=== PATIENT | male | born 1970 | race American Indian/Alaskan Native ===

== ENCOUNTER 2018-12-21 07:54 | Day surgery (SDC) | payer BC ==
[~2018-12-21 07:54] MED LIST: TETRACAINE 0.5% OPHTH SOLN 4ML OD SCH
[2018-12-21] MEDS: MOXIFLOXACIN 0.5% OPHTH SOLN 3ML OD SCH ×3 (10:05→10:15)
[2018-12-21] MEDS: PHENYLEPHRINE 2.5% OPHTH SOLN 2 ML OD SCH ×3 (10:05→10:15)
[2018-12-21] MEDS: TROPICAMIDE 1% OPHTH SOLN 3 ML OD SCH ×3 (10:05→10:15)
--- NOTE | 2018-12-21 10:26 | Anesthesia Day of Surgery ---
Anesthesia Day of Surgery - Day of Surgery Patient Examined: Yes Patient H&P Reviewed: Yes Patient is NPO: Yes Beta Blockers: Yes
--- NOTE | 2018-12-21 10:26 | Anesthesia Consultation ---
Anesthesia Consult and Med Hx Date of service: 12/21/18 - Airway Anesthetic Teeth Evaluation: Good ROM Head & Neck: Adequate Mental/Hyoid Distance: Adequate Mallampati Class: Class II Intubation Access Assessment: Probably Good (large zavala - potentially difficult mask) - Pulmonary Exam CTA: Yes - Cardiac Exam Cardiac Exam: RRR - Pre-Operative Health Status ASA Pre-Surgery Classification: ASA3 Proposed Anesthetic Plan: MAC - Pulmonary Hx Smoking: Yes (former; quit 10 yrs) Hx Respiratory Symptoms: No - Cardiovascular System Hx Hypertension: Yes (took antihypertensives this morning) Hx Heart Attack/AMI: No Hx Percutaneous Transluminal Coronary Angioplasty (PTCA): No - Central Nervous System Hx Neuromuscular Disorder: No (neuropathy) CVA: No Hx Back Pain: Yes (LUMBAR) Hx Psychiatric Problems: No - Gastrointestinal Hx Gastroesophageal Reflux Disease: No - Endocrine Hx Renal Disease: No Hx Liver Disease: No Hx Insulin Dependent Diabetes: Yes Hx Thyroid Disease: No - Hematic Hx Sickle Cell Disease: (TRAIT) - Other Systems Hx Alcohol Use: Yes Hx Obesity: Yes
[2018-12-21] MEDS ORDERED: acetaZOLAMIDE 250 MG TAB PO NR (10:32)
[2018-12-21] MEDS ORDERED: prednisoLONE ACETATE 1% OPHTH SUSP 5 ML OD NR (10:32)
--- NOTE | 2018-12-21 11:17 | Operative Report ---
Operative Report Operative Report: PATIENT'S NAME: DATE OF : DATE OF SURGERY: 12/21/2018 PREOPERATIVE DIAGNOSIS: Cataract right eye POSTOPERATIVE DIAGNOSIS: Same OPERATIVE PROCEDURE: Phacoemulsification with intraocular lens implantation, right eye SURGEON: Chanell Laurent M.D. CARTOONIST SPECIAL EFFECTS SURGEON: Casimiro Lens: [id number] 18.5 D ANESTHESIA: Monitored anesthesia care in combination with topical and intracameral anesthesia because of the established specific risk of reflux, arrhythmias, or anxiety attacks associated with ocular manipulation, as well as the difficulty of the water operator to manage such potentially catastrophic events while simultaneously attempting to complete the surgical procedure and was deemed necessary for the patient's safety to have an Plaster Model And Mold Maker present during the procedure whenever possible. An Plaster Model And Mold Maker was utilized to regulate the intravenous sedation of the patient so the patient was cooperative yet not asleep in order for the patient to successfully maintain fixation of the eye on the operating light of the microscope. COMPLICATIONS: No surgical complications No blood loss. ALLERGIES: No known drug allergies PROGNOSIS: Excellent INDICATIONS FOR SURGERY: The patient is undergoing surgery in the hopes of eliminating or improving these visual difficulties. PROCEDURE: After arriving at the surgery center, the patient was given topical anesthetic and dilating drops, as noted in the record. The patient was then taken into the operating room and given more anesthetic drops. The eyelids, lashes, and lid margins were scrubbed with Betadine solution, and the patient was draped. The Nurse Plaster Model And Mold Maker administered IV sedation and monitored the patient during the procedure. The eye was then fixated with a 0.12, and a stab incision was made in the peripheral clear cornea into the anterior chamber. This was made on my left side. Viscoelastic was next used to fill the anterior chamber. The eye was once again fixated with the 0.12 forceps and a keratome was used make an incision in clear cornea peripherally on my right hand side temporally. The capsule forceps were used to open the central anterior capsule and then make a continuous round capsulotomy. Hydrodissection was carried out utilizing a cannula and balanced salt solution to delineate the cortical material from the capsule and the nucleus from the cortical material. The phaco tip was introduced into the eye and used to remove the anterior cortical material in the area of the capsulotomy. Then the phaco tip was buried into the nucleus, and a chopping instrument was introduced into the eye and used to provide countertraction in the nucleus between this instrument and the phaco tip fracturing the nucleus. This procedure was repeated multiple times, providing multiple small segments of the lens, and then the phaco tip was used to remove each of these segments. An I/A tip was then used to remove the remaining cortex. The anterior chamber was refilled with viscoelastic. An one-piece, acrylic intraocular lens was then placed into an inserting cartridge. The tip of the inserting cartridge was introduced into the keratome incision and into the anterior chamber. The implant was gently advanced through the cartridge and into the eye, where it unfolded, and both haptics were placed in the capsular bag, where it centered nicely and appeared to be well fixated. After placement of the intraocular lens, the I~and~A handpiece was placed back into the eye and used to remove the viscoelastic, including viscoelastic that was behind the optic of the intraocular lens. The anterior chamber was then filled with balanced salt solution, and hydration of the wound was used to cause swelling of the wound and more appropriate watertight closure. When the wound was found to be firm, the patient was asked to comment on how bright the light was. If there was no light perception at all or if the light was substantially dimmer than during the rest of the surgery, the amount of fluid in the eye was decompressed to lower the intraocular pressure until the patient could see the b right light again. This was done to avoid any damage or decreased blood flow to the optic nerve. MEDICATIONS APPLIED AT END OF SURGERY: One drop of Pred Forte and Vigamox The patient was given a shield to wear at night and was instructed not to rub or push on the eye. DISCHARGE SUMMARY: The patient was released in stable condition. The patient and those with the patient were given a written sheet of postoperative instructions and counseling on any abnormal laboratory studies. The patient is to see us tomorrow for follow-up in the office and is to call immediately for any difficulties. Chanell Laurent M.D. Date
--- NOTE | 2018-12-21 11:18 | Short Stay Summary ---
Short Stay Documentation Date of service: 12/21/18 - History H&P: obtained from office - Allergies and Medications Current Medications: Allergies No Known Allergies Allergy (Verified 12/19/18 17:47) Home Medications Medication Instructions Recorded Confirmed Last Taken Type AtorvaSTATin [Lipitor] 40 mg PO QHS 12/19/18 12/19/18 Unknown History Furosemide [Lasix TAB] 40 mg PO BID 12/19/18 12/19/18 Unknown History Gabapentin [Neurontin] 600 mg PO Q8H 12/19/18 12/19/18 Unknown History Insulin Lispro [Humalog 100 12 units SQ AC 12/19/18 12/19/18 Unknown History UNITS/ML Kwikpen] Irbesartan [Avapro] 150 mg PO DAILY 12/19/18 12/19/18 Unknown History Metoprolol Xl [Metoprolol 100 mg PO QDAY 12/19/18 12/19/18 Unknown History SUCCINATE ER TAB] Multivit-Min/Folic/Vit K/Lycop 1 each PO DAILY 12/19/18 12/19/18 Unknown History [[facility] Daily Men[facility] Health Tab] Potassium Chloride [K-Dur] 20 meq PO BID 12/19/18 12/19/18 Unknown History cloNIDine [Catapres] 0.2 mg PO BID 12/19/18 12/19/18 Unknown History glipiZIDE [Glucotrol] 5 mg PO BID 12/19/18 12/19/18 Unknown History metFORMIN [Glucophage] 500 mg PO BID 12/19/18 12/19/18 Unknown History Active Medications Acetazolamide (Diamox) 500 mg PO ONCE NR Stop: 12/21/18 15:00 Moxifloxacin HCl (Vigamox) 1 drops OD Q5MIN CHERI Stop: 12/21/18 14:00 Phenylephrine HCl (Ak-Dilate) 1 drops OD Q5MIN CHERI Stop: 12/21/18 14:00 Prednisolone Acetate (Pred Forte 1%) 1 drops OD ONCE NR Stop: 12/21/18 15:00 Tetracaine HCl (Tetracaine 0.5%) 1 drops OD Q5M CHERI Stop: 12/21/18 14:00 Tropicamide (Mydriacyl) 1 drops OD Q5MIN CHERI Stop: 12/21/18 14:00 - Brief post op/procedure progress note Date of procedure: 12/21/18 Pre-op diagnosis: right cataract Post-op diagnosis: same Procedure: Phacoemulsification with intraocular lens insertion right eye Anesthesia: MAC, local Surgeon: GIOVANNY MURILLO Estimated blood loss: none Pathology: none Condition: stable - Disposition Condition at discharge: Good Disposition: DC-01 TO HOME OR SELFCARE - Discharge Diagnoses (1) Cortical age-related cataract, right eye Status: Resolved Short Stay Discharge Plan Follow up with: XENA HERNÁNDEZ MD [Primary Care Provider] - 7 Days
[2018-12-21] MEDS ORDERED: fentaNYL 100 MCG/2 ML INJ ONE (11:40)
[2018-12-21] MEDS ORDERED: MIDAZOLAM 2 MG/2 ML INJ ONE (11:40)
[2018-12-21 12:07] VITALS: BP 110/82
--- NOTE | 2018-12-21 12:11 | Post Anesthesia Evaluation ---
- Post Anesthesia Evaluation Patient Participated: Yes Airway Patent: Yes Stable Respiratory Function: Yes Nausea/Vomiting: No Temp > 96.8F: Yes Pain Manageable: Yes Adequeate Hydration: Yes Anesthesia Complications: No
== END 2018-12-21 12:05 | disposition home or self-care (01) ==
LOC: OR 07:54
DX: E11.36 Type 2 diabetes mellitus with diabetic cataract (principal); H25.011 Cortical age-related cataract, right eye; G62.9 Polyneuropathy, unspecified; E78.00 Pure hypercholesterolemia, unspecified; I10 Essential (primary) hypertension; E66.9 Obesity, unspecified; M19.90 Unspecified osteoarthritis, unspecified site; E11.42 Type 2 diabetes mellitus with diabetic polyneuropathy; Z72.89 Other problems related to lifestyle; Z87.891 Personal history of nicotine dependence; Z79.84 Long term (current) use of oral hypoglycemic drugs; Z79.4 Long term (current) use of insulin; Z79.899 Other long term (current) drug therapy; Z68.33 Body mass index [BMI] 33.0-33.9, adult; Z80.1 Family history of malignant neoplasm of trachea, bronchus and lung; Z80.3 Family history of malignant neoplasm of breast
CPT/HCPCS: 66984; 82962; J2250; J3010; V2632

== ENCOUNTER 2018-12-29 07:40 | Day surgery (SDC) | payer BC ==
[~2018-12-29 07:40] MED LIST changes: -TETRACAINE 0.5% OPHTH SOLN 4ML OD SCH; +TETRACAINE 0.5% OPHTH SOLN 4ML OS SCH
[2018-12-29] MEDS ORDERED: acetaZOLAMIDE 250 MG TAB PO NR (08:08)
--- NOTE | 2018-12-29 08:10 | Anesthesia Consultation ---
Anesthesia Consult and Med Hx Date of service: 12/29/18 - Airway Anesthetic Teeth Evaluation: Good ROM Head & Neck: Adequate Mental/Hyoid Distance: Adequate Mallampati Class: Class II Intubation Access Assessment: Good - Pulmonary Exam CTA: Yes - Cardiac Exam Cardiac Exam: RRR - Pre-Operative Health Status ASA Pre-Surgery Classification: ASA3 Proposed Anesthetic Plan: MAC - Pulmonary Hx Smoking: Yes (QUIT 10YRS AGO) Hx Respiratory Symptoms: No Hx Sleep Apnea: (HIGH RISK) - Cardiovascular System Hx Hypertension: Yes (2012) Hx Heart Attack/AMI: No Hx Percutaneous Transluminal Coronary Angioplasty (PTCA): No - Central Nervous System Hx Neuromuscular Disorder: No (neuropathy) CVA: No Hx Back Pain: Yes (LUMBAR) Hx Psychiatric Problems: No - Gastrointestinal Hx Gastroesophageal Reflux Disease: No - Endocrine Hx Renal Disease: No Hx Liver Disease: No Hx Insulin Dependent Diabetes: Yes Hx Thyroid Disease: No - Hematic Hx Sickle Cell Disease: (TRAIT) - Other Systems Hx Alcohol Use: Yes Hx Substance Use: No Hx Cancer: No Hx Obesity: Yes
--- NOTE | 2018-12-29 08:11 | Anesthesia Day of Surgery ---
Anesthesia Day of Surgery - Day of Surgery Patient Examined: Yes Patient H&P Reviewed: Yes Patient is NPO: Yes
[2018-12-29] MEDS: PHENYLEPHRINE 2.5% OPHTH SOLN 2 ML OS SCH ×3 (08:30→08:40)
[2018-12-29] MEDS: TROPICAMIDE 1% OPHTH SOLN 3 ML OS SCH ×3 (08:30→08:40)
[2018-12-29] MEDS: MOXIFLOXACIN 0.5% OPHTH SOLN 3ML OS SCH ×3 (08:30→08:40)
[2018-12-29] MEDS ORDERED: prednisoLONE ACETATE 1% OPHTH SUSP 5 ML OS NR (09:00)
[2018-12-29] MEDS ORDERED: INSULIN LISPRO 100 UNIT/ML SUB-Q ONE (09:15)
[2018-12-29] MEDS ORDERED: fentaNYL 100 MCG/2 ML INJ ONE (09:31)
[2018-12-29] MEDS ORDERED: MIDAZOLAM 2 MG/2 ML INJ ONE (09:31)
--- NOTE | 2018-12-29 10:09 | Operative Report ---
Operative Report Operative Report: PATIENT'S NAME: DATE OF : DATE OF SURGERY: 12/29/2018 PREOPERATIVE DIAGNOSIS: Cataract left eye POSTOPERATIVE DIAGNOSIS: Same OPERATIVE PROCEDURE: Phacoemulsification with intraocular lens implantation, left eye SURGEON: Chanell Laurent M.D. PUBLIC RELATIONS SURGEON: Casimiro Lens: [id number] 17.0 D ANESTHESIA: Monitored anesthesia care in combination with topical and intracameral anesthesia because of the established specific risk of reflux, arrhythmias, or anxiety attacks associated with ocular manipulation, as well as the difficulty of the prestressed concrete laborer to manage such potentially catastrophic events while simultaneously attempting to complete the surgical procedure and was deemed necessary for the patient's safety to have an Hand Alterations Tailor present during the procedure whenever possible. An Hand Alterations Tailor was utilized to regulate the intravenous sedation of the patient so the patient was cooperative yet not asleep in order for the patient to successfully maintain fixation of the eye on the operating light of the microscope. COMPLICATIONS: No surgical complications No blood loss. ALLERGIES: No known drug allergies PROGNOSIS: Excellent INDICATIONS FOR SURGERY: The patient is undergoing surgery in the hopes of eliminating or improving these visual difficulties. PROCEDURE: After arriving at the surgery center, the patient was given topical anesthetic and dilating drops, as noted in the record. The patient was then taken into the operating room and given more anesthetic drops. The eyelids, lashes, and lid margins were scrubbed with Betadine solution, and the patient was draped. The Nurse Hand Alterations Tailor administered IV sedation and monitored the patient during the procedure. The eye was then fixated with a 0.12, and a stab incision was made in the peripheral clear cornea into the anterior chamber. This was made on my left side. Viscoelastic was next used to fill the anterior chamber. The eye was once again fixated with the 0.12 forceps and a keratome was used make an incision in clear cornea peripherally on my right hand side temporally. The capsule forceps were used to open the central anterior capsule and then make a continuous round capsulotomy. Hydrodissection was carried out utilizing a cannula and balanced salt solution to delineate the cortical material from the capsule and the nucleus from the cortical material. The phaco tip was introduced into the eye and used to remove the anterior cortical material in the area of the capsulotomy. Then the phaco tip was buried into the nucleus, and a chopping instrument was introduced into the eye and used to provide countertraction in the nucleus between this instrument and the phaco tip fracturing the nucleus. This procedure was repeated multiple times, providing multiple small segments of the lens, and then the phaco tip was used to remove each of these segments. An I/A tip was then used to remove the remaining cortex. The anterior chamber was refilled with viscoelastic. An one-piece, acrylic intraocular lens was then placed into an inserting cartridge. The tip of the inserting cartridge was introduced into the keratome incision and into the anterior chamber. The implant was gently advanced through the cartridge and into the eye, where it unfolded, and both haptics were placed in the capsular bag, where it centered nicely and appeared to be well fixated. After placement of the intraocular lens, the I~and~A handpiece was placed back into the eye and used to remove the viscoelastic, including viscoelastic that was behind the optic of the intraocular lens. The anterior chamber was then filled with balanced salt solution, and hydration of the wound was used to cause swelling of the wound and more appropriate watertight closure. When the wound was found to be firm, the patient was asked to comment on how bright the light was. If there was no light perception at all or if the light was substantially dimmer than during the rest of the surgery, the amount of fluid in the eye was decompressed to lower the intraocular pressure until the patient could see the bright light again. This was done to avoid any damage or decreased blood flow to the optic nerve. MEDICATIONS APPLIED AT END OF SURGERY: One drop of Pred Forte and Vigamox The patient was given a shield to wear at night and was instructed not to rub or push on the eye. DISCHARGE SUMMARY: The patient was released in stable condition. The patient and those with the patient were given a written sheet of postoperative instructions and counseling on any abnormal laboratory studies. The patient is to see us tomorrow for follow-up in the office and is to call immediately for any difficulties. Chanell Laurent M.D. Date
--- NOTE | 2018-12-29 10:10 | Short Stay Summary ---
Short Stay Documentation Date of service: 12/29/18 - History H&P: obtained from office - Allergies and Medications Current Medications: Allergies No Known Allergies Allergy (Verified 12/25/18 15:11) Home Medications Medication Instructions Recorded Confirmed Last Taken Type AtorvaSTATin [Lipitor] 40 mg PO QHS 12/19/18 12/25/18 12/14/18 09:00 History Furosemide [Lasix TAB] 40 mg PO BID 12/19/18 12/25/18 12/20/18 21:00 History Gabapentin [Neurontin] 600 mg PO Q8H 12/19/18 12/25/18 12/21/18 06:00 History Insulin Lispro [Humalog 100 12 units SQ AC 12/19/18 12/25/18 12/20/18 21:00 History UNITS/ML Kwikpen] Irbesartan [Avapro] 150 mg PO DAILY 12/19/18 12/25/18 12/21/18 06:00 History Metoprolol Xl [Metoprolol 100 mg PO QDAY 12/19/18 12/25/18 12/21/18 06:00 History SUCCINATE ER TAB] Multivit-Min/Folic/Vit K/Lycop 1 each PO DAILY 12/19/18 12/25/18 12/20/18 09:00 History [[facility] Daily [facility] Tab] Potassium Chloride [K-Dur] 20 meq PO BID 12/19/18 12/25/18 12/20/18 21:00 History cloNIDine [Catapres] 0.2 mg PO BID 12/19/18 12/25/18 12/21/18 06:00 History glipiZIDE [Glucotrol] 5 mg PO BID 12/19/18 12/25/18 12/20/18 21:00 History metFORMIN [Glucophage] 500 mg PO BID 12/19/18 12/25/18 12/20/18 21:00 History Active Medications Acetazolamide (Diamox) 500 mg PO ONCE NR Stop: 12/29/18 14:00 Moxifloxacin HCl (Vigamox) 1 drops OS Q5MIN CHERI Stop: 12/29/18 12:00 Phenylephrine HCl (Ak-Dilate) 1 drops OS Q5MIN CHERI Stop: 12/29/18 12:00 Prednisolone Acetate (Pred Forte 1%) 1 drops OS ONCE NR Stop: 12/29/18 14:00 Tetracaine HCl (Tetracaine 0.5%) 1 drops OS Q5M CHERI Stop: 12/29/18 12:00 Tropicamide (Mydriacyl) 1 drops OS Q5MIN CHERI Stop: 12/29/18 12:00 - Brief post op/procedure progress note Date of procedure: 12/29/18 Pre-op diagnosis: left cataract Post-op diagnosis: same Procedure: Phacoemulsification with intraocular lens insertion left eye Anesthesia: MAC, local Surgeon: GIOVANNY MURILLO Estimated blood loss: none Pathology: none Condition: stable - Disposition Condition at discharge: Good Disposition: DC-01 TO HOME OR SELFCARE - Discharge Diagnoses (1) Cortical age-related cataract, left eye Status: Resolved Short Stay Discharge Plan Follow up with: XENA HERNÁNDEZ MD [Primary Care Provider] - 7 Days
[2018-12-29] MEDS ORDERED: INSULIN REGULAR, HUMAN 100 UNITS/1 ML IV ONE (11:00)
[2018-12-29 12:20] VITALS: BP 130/88
--- NOTE | 2018-12-29 16:52 | Post Anesthesia Evaluation ---
- Post Anesthesia Evaluation Patient Participated: Yes Airway Patent: Yes Stable Respiratory Function: Yes Nausea/Vomiting: No Temp > 96.8F: Yes Pain Manageable: Yes Adequeate Hydration: Yes Anesthesia Complications: No Block Receding Appropriately: Not Applicable Patient on Ventilator: No
== END 2018-12-29 11:18 | disposition home or self-care (01) ==
LOC: OR 07:40
DX: E11.36 Type 2 diabetes mellitus with diabetic cataract (principal); H25.012 Cortical age-related cataract, left eye; Z79.899 Other long term (current) drug therapy; E11.42 Type 2 diabetes mellitus with diabetic polyneuropathy; G62.9 Polyneuropathy, unspecified; E78.00 Pure hypercholesterolemia, unspecified; I10 Essential (primary) hypertension; G47.30 Sleep apnea, unspecified; E66.9 Obesity, unspecified; M19.90 Unspecified osteoarthritis, unspecified site; Z72.89 Other problems related to lifestyle; Z87.891 Personal history of nicotine dependence; Z79.84 Long term (current) use of oral hypoglycemic drugs; Z79.4 Long term (current) use of insulin; Z98.41 Cataract extraction status, right eye; Z68.33 Body mass index [BMI] 33.0-33.9, adult; Z87.442 Personal history of urinary calculi; Z98.890 Other specified postprocedural states; Z80.3 Family history of malignant neoplasm of breast; Z80.1 Family history of malignant neoplasm of trachea, bronchus and lung
CPT/HCPCS: 66984; 82962; J2250; J3010; J1815; V2632